=== PATIENT | female | born 1980 | race Asian ===

== ENCOUNTER 2017-03-13 22:06 | Emergency (ER) | payer OTHER ==
[~2017-03-13] VITALS: Ht 160 cm; Wt 74.9 kg
[2017-03-13 23:13] LABS: HEMATOCRIT 41.2 % (36.0-46.0); MCH 28.7 PG (29.0-34.0); MCHC 32.8 G/DL (30.0-36.0); MCV 87.7 FL (83-99); MEAN PLAT.VOLUME 9.2 uM^3 (9.5-12.4); PLATELET COUNT 289 K/uL (156-360); RBC DIS.WIDTH-CV 11.8 % (11.8-14.6)
[2017-03-13 23:20] LABS: D-DIMER ELISA < 150.00 ng/mLDDU (<230)
[2017-03-13 23:23] LABS: CHLORIDE 107 mEq/L (99-109); POTASSIUM 4.3 mEq/L (3.7-5.4); SODIUM 140 mEq/L (136-147)
[2017-03-13 23:25] LABS: GLUCOSE 109 mg/dL (70-99)
[2017-03-13 23:27] LABS: ANION GAP 10 MEQ/L (2-14)
[2017-03-13 23:30] LABS: UREA NITROGEN (BUN) 16 mg/dL (9-23)
[2017-03-13 23:32] LABS: GFR ESTIMATE (CALCULATED) > 59 mL/min/
[2017-03-13 23:34] LABS: TROP-I INTERPRETATION NEGATIVE; TROPONIN-I < 0.01 ng/mL (0.0-0.30)
[2017-03-13 23:41] LABS: QUANTITATIVE HCG < 4.0 MIU/ML
[2017-03-14] MEDS ORDERED: MOTRIN600 MG PO (00:36)
[2017-03-14 00:47] VITALS: BP 106/74
== END 2017-03-14 00:48 | disposition home or self-care (01) ==
LOC: EME 22:06
PROVIDERS: Physician Assistant
DX: M94.0 Chondrocostal junction syndrome [Tietze] (principal)
CPT/HCPCS: 71020; 80048; 84484; 84702; 85027; 85379; 93005; 99281; 99284; J1885